=== PATIENT | male | born 1990 | race Caucasian/White ===

== ENCOUNTER 2017-02-12 13:52 | Emergency (ER) | payer BC, OTHER ==
[2017-02-12 13:55] VITALS: BP 149/69; PULSE 75; TEMP 97.5
--- NOTE | 2017-02-12 15:58 | PDOC ---
History of Present Illness - General Chief Complaint: Chest Pain Stated Complaint: CHEST DISCOMFORT Time Seen by Provider: 02/12/17 15:26 History Source: Patient - History of Present Illness Presenting Symptoms: Chest Pain Timing/Duration: reports: constant Chest Pain Radiation: reports: no radiation Past History - Past Medical History Allergies/Adverse Reactions: Allergies Allergy/AdvReac Type Severity Reaction Status Date / Time No Known Allergies Allergy Verified 02/12/17 13:55 Home Medications: Ambulatory Orders NK [No Known Home Medication] 02/03/15 - Surgical History Appendectomy: Yes - Psycho/Social/Smoking Cessation Hx Suicidal Ideation: No Smoking History: Never smoked Hx Alcohol Use: No Drug/Substance Use Hx: No Review of Systems - Review of Systems Constitutional: No: Chills, Fever Respiratory: No: Cough, Shortness of Breath Cardiac (ROS): No: Edema, Irregular Heart Rate, Lightheadedness, Palpitations, Syncope *Physical Exam - Vital Signs Last Vital Signs Temp Pulse Resp BP Pulse Ox 97.5 F L 75 20 149/69 100 02/12/17 13:53 02/12/17 13:53 02/12/17 13:53 02/12/17 13:53 02/12/17 13:53 - Physical Exam General Appearance: Yes: Appropriately Dressed. No: Apparent Distress HEENT: positive: Normal Voice Neck: positive: Supple Respiratory/Chest: negative: Respiratory Distress Extremity: positive: Normal Inspection. negative: Pedal Edema Integumentary: positive: Dry, Warm Neurologic: positive: Fully Oriented, Alert, Normal Mood/Affect ED Treatment Course - RADIOLOGY Radiology Studies Ordered: Category Date Time Status CHEST PA & LAT [RAD] Stat Radiology 02/12/17 15:53 Taken Medical Decision Making - Medical Decision Making 02/12/17 15:54 26-year-old male, no significant history nonsmoker, here with right chest discomfort 3 days. Patient states he does not have pain but instead have a "discomfort" in his chest, regardless of position. States sxs may be worse when he takes a deep breath. Otherwise, no shortness of breath, diaphoresis, nausea, vomiting and no palpitations, leg pain or swelling. No history of similar symptoms in the past. No obvious risk factors for DVT/PE. Denies illicit drug use. Pt well heidi and stable w/ clear chest/lungs and no edema. Story not concerning for ACS or pulm pathology and pt PERCs out. EKG done and neg as d/w ED attg who reviewed ekg. CXR neg. Dc w/ reassurance and pmd f/u if symptoms persist *DC/Admit/Observation/Transfer Diagnosis at time of Disposition: Chest discomfort - Discharge Dispostion Disposition: HOME Condition at time of disposition: Good - Referrals Referrals: Fariha Wang MD [Primary Care Provider] - - Patient Instructions Printed Discharge Instructions: DI for Atypical Chest Pain Additional Instructions: Please follow-up with her PMD if symptoms persist.
--- NOTE | 2017-02-13 12:32 | EKG ---
Test Reason : Blood Pressure : / mmHG Vent. Rate : 072 BPM Atrial Rate : 072 BPM P-R Int : 142 ms QRS Dur : 096 ms QT Int : 378 ms P-R-T Axes : 053 043 058 degrees QTc Int : 413 ms NORMAL SINUS RHYTHM NORMAL ECG WHEN COMPARED WITH ECG OF 03-FEB-2015 12:18, ST NO LONGER ELEVATED IN ANTERIOR LEADS Confirmed by BRYCE HANEY MD ([id number]) on 02/13/2017 12:32:19 PM Referred By: Confirmed By:BRYCE HANEY MD
== END 2017-02-12 16:22 | disposition home or self-care (01) ==
LOC: JER 13:52 → JERFT 13:52
DX: R07.89 Other chest pain (principal)
CPT/HCPCS: 71020-TC; 93005; 93010; 99281-25